=== PATIENT | male | born 1995 | race Caucasian/White ===

== ENCOUNTER 2019-06-23 06:07 | Emergency (ER) | payer BC, OTHER ==
[~2019-06-23] VITALS: Ht 182.9 cm; Wt 74.8 kg
[2019-06-23 06:07] VITALS: BP 122/65
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
--- NOTE | 2019-06-23 06:09 | NUR ---
SEEN AND EXAMINED BY BANDAR.
[2019-06-23 06:12] VITALS: BP 122/65
--- NOTE | 2019-06-23 06:12 | NUR ---
PATIENT BIB [facility] [facility]. PATIENT EXAMINED BY DR. MAN. PATIENT MEDICALLY CLEARED AND RELEASED IN CUSTODY IN STABLE CONDITION. ORIGINAL PRE-BOOK FORM GIVEN TO OFFICER [place] AU # [id number].
== END 2019-06-23 06:12 ==
LOC: MED 06:07
DX: Z04.1 Encounter for examination and observation following transport accident (principal); Z02.89 Encounter for other administrative examinations; V89.2XXA Person injured in unspecified motor-vehicle accident, traffic, initial encounter; Y93.89 Activity, other specified; Y92.89 Other specified places as the place of occurrence of the external cause; Y99.8 Other external cause status
CPT/HCPCS: 99283